=== PATIENT | male | born 1990 ===

== ENCOUNTER 2023-07-03 20:00 | Outpatient (CLI) | payer OTHER, SELFPAY | END 2023-07-03 20:01 | disposition home or self-care (01) | LOC: SLEEP 07-04 03:57 | PROVIDERS: Visit Provider Family Medicine | DX: G47.33 Obstructive sleep apnea (adult) (pediatric) (principal); R06.83 Snoring | CPT/HCPCS: 95810 ==

== ENCOUNTER 2023-11-25 20:00 | Outpatient (CLI) | payer OTHER, SELFPAY | END 2023-11-25 20:01 | disposition home or self-care (01) | LOC: SLEEP 11-26 06:01 | PROVIDERS: Visit Provider Family Medicine | DX: G47.33 Obstructive sleep apnea (adult) (pediatric) (principal); R06.83 Snoring | CPT/HCPCS: 95811 ==